=== PATIENT | female | born 1935 | race Caucasian/White ===

== ENCOUNTER 2020-01-26 06:03 | Inpatient (IN) ==
--- NOTE | 2020-01-21 16:33 | EKG Report ---
Test Performed on : 01/21/2020 4:26:20 PM Test Reason : PAT Blood Pressure : / mmHG Vent. Rate : 057 BPM Atrial Rate : 057 BPM P-R Int : 204 ms QRS Dur : 134 ms QT Int : 470 ms P-R-T Axes : 054 -44 014 degrees QTc Int : 457 ms Sinus bradycardia. Left axis deviation Right bundle branch block Minimal voltage criteria for LVH, may be normal variant Abnormal ECG When compared with ECG of 19-MAR-2013 11:41, premature supraventricular complexes. are no longer present Confirmed by Joshua Damico MD ([id number]) on 01/21/2020 7:51:17 PM
[2020-01-21 16:49] LABS: URINE SOURCE CLEAN CATCH
[2020-01-21 16:56] LABS: BASO# 0.03 X1000 (0.0-0.2); BASO% 0.4 % (0.0-0.8); EOS# 0.31 X1000 (0.0-0.7); EOS% 4.4 % (0.0-10.0); HEMATOCRIT 36.6 % (37.0-47.0); HEMOGLOBIN 11.1 g/dL (12.0-16.0); LYMPH# 0.88 X1000 (1.2-3.4); LYMPH% 12.5 % (20.5-51.1); MCH 23.7 PG (27-31); MCHC 30.3 g/dL (33-37); MCV 78.2 FL (81-99); MONO# 0.47 X1000 (0.11-0.59); MONO% 6.7 % (1.7-9.3); MPV 9.8 FL (7.4-10.4); NEUT# 5.36 X1000 (1.4-6.5); PLT 257 X1000 (130-400); RBC 4.68 XMIL (4.2-5.4); WBC 7.05 X1000 (4.8-10.8)
[2020-01-21 17:00] LABS: BILIRUBIN URINE NEGATIVE (NEGATIVE); BLOOD URINE NEGATIVE (NEGATIVE); COLOR YELLOW; GLUCOSE URINE NEGATIVE (NEGATIVE); KETONE URINE NEGATIVE (NEGATIVE); LEUKOCYTES URINE TRACE (NEGATIVE); NITRITE URINE NEGATIVE (NEGATIVE); PROTEIN URINE TRACE mg/dL (NEGATIVE); SP GRAVITY URINE 1.017; TURBIDITY URINE CLEAR (CLEAR); UROBILINOGEN URINE 2 mg/dL (NORMAL)
[2020-01-21 17:02] LABS: UR EPITHELIAL CELLS <10 /HPF (<10); URINE BACTERIA NEGATIVE /HPF; URINE RBC <10 /HPF (<10); URINE WBC <10 /HPF (<10)
[2020-01-21 17:04] LABS: HEMOGLOBIN A1C 5.6 % (4.8-6.0)
[2020-01-21 17:11] LABS: INR 1.03; PROTIME 13.6 Seconds (11.0-16.0)
[2020-01-21 17:12] LABS: AGAP 11; ALBUMIN 4.1 g/dL (3.5-5.0); BUN 17 mg/dL (8-22); CALCIUM 9.1 mg/dL (8.8-10.2); CHLORIDE 101 mmol/L (98-107); COSMO 284; CREATININE 0.8 mg/dL (0.5-0.9); ESTIMATED GFR > 60; GLUCOSE 86 mg/dL (70-104); POTASSIUM 3.4 mmol/L (3.5-5.1); PTT 29.9 Seconds (22.3-41.8); SODIUM 142 mmol/L (136-145); TCO2 30 mmol/L (25-35)
[2020-01-26] MEDS ORDERED: PEPCID ONE (06:51)
[2020-01-26] MEDS ORDERED: COLACE ONE (06:51)
[2020-01-26] MEDS ORDERED: LYRICA ONE (06:51)
[2020-01-26] MEDS ORDERED: LR 1,000 ML ONE (06:52)
[2020-01-26] MEDS ORDERED: CELEBREX ONE (06:52)
[2020-01-26] MEDS ORDERED: KEFZOL 1 GM/D5W 1 GM/50 ML IVPB ONE ×2 (06:52→09:44)
[2020-01-26] MEDS ORDERED: NEO-SYNEPHRINE ONE ×2 (07:02→10:34)
[2020-01-26] MEDS ORDERED: QUELICIN (DOSE) ONE (07:02)
[2020-01-26] MEDS ORDERED: XYLOCAINE-MPF 2% ONE (07:02)
[2020-01-26] MEDS ORDERED: SODIUM CHLORIDE 0.9% 20 ML ONE (07:02)
[2020-01-26] MEDS ORDERED: ROBINUL ONE ×2 (07:02→11:13)
[2020-01-26] MEDS ORDERED: DIPRIVAN 1% ONE (07:05)
[2020-01-26] MEDS ORDERED: FENTANYL ONE (07:05)
[2020-01-26] MEDS ORDERED: DECADRON ONE (07:06)
[2020-01-26] MEDS ORDERED: DIPRIVAN 1% 500 MG/50 ML BOTTLE ONE (07:22)
[2020-01-26] MEDS ORDERED: DURAMORPH ONE (08:38)
[2020-01-26] MEDS ORDERED: TORADOL ONE (08:38)
[2020-01-26] MEDS ORDERED: MARCAINE 0.25% PF ONE (08:38)
[2020-01-26] MEDS ORDERED: CYKLOKAPRON 1,000 MG/NS 1,000 MG/100 ML IVPB ONE ×2 (08:39→09:44)
[2020-01-26] MEDS ORDERED: EXPAREL 1.3% ONE (08:39)
[2020-01-26] MEDS ORDERED: SODIUM CHLORIDE 0.9% ONE (08:39)
[2020-01-26] MEDS ORDERED: EPHEDRINE ONE (09:43)
[2020-01-26] MEDS ORDERED: OFIRMEV 1000 MG/ISOTONIC SOLN 1,000 MG/100 ML BOTTLE ONE (09:44)
[2020-01-26 10:31] LABS: URINE SOURCE CATH
[2020-01-26 10:36] LABS: BILIRUBIN URINE NEGATIVE (NEGATIVE); BLOOD URINE NEGATIVE (NEGATIVE); COLOR YELLOW; GLUCOSE URINE NEGATIVE (NEGATIVE); KETONE URINE NEGATIVE (NEGATIVE); LEUKOCYTES URINE NEGATIVE (NEGATIVE); NITRITE URINE NEGATIVE (NEGATIVE); PH URINE 7.5; PROTEIN URINE NEGATIVE (NEGATIVE); SP GRAVITY URINE 1.019; TURBIDITY URINE CLEAR (CLEAR); UROBILINOGEN URINE NORMAL (NORMAL)
[2020-01-26 10:37] LABS: UR EPITHELIAL CELLS <10 /HPF (<10); URINE BACTERIA NEGATIVE /HPF; URINE RBC <10 /HPF (<10); URINE WBC <10 /HPF (<10)
[2020-01-26] MEDS ORDERED: ZOFRAN ONE (10:54)
[2020-01-26] MEDS ORDERED: OXY IR PO PRN ×2 (11:46)
[2020-01-26] MEDS ORDERED: VANCOMYCIN 1 GM/NS 1 GM/250 ML IVPB IV ONE (11:46)
[2020-01-26] MEDS ORDERED: MORPHINE IV PRN (11:46)
[2020-01-26] MEDS ORDERED: ZOFRAN IV PRN (11:46)
[2020-01-26] MEDS ORDERED: ZOFRAN PO PRN (11:46)
[2020-01-26 12:21] LABS: HEMATOCRIT 26.1 % (37.0-47.0); HEMOGLOBIN 7.7 g/dL (12.0-16.0)
--- NOTE | 2020-01-26 12:24 | Diag Imaging Result Doc PS360 ---
EXAM: XRAY HIP UNILATERAL LT INDICATION: Postop TECHNIQUE: 2 views COMPARISON: None. FINDINGS: There has been a recent left hip arthroplasty. The arthroplasty hardware is in the expected position. There is no evidence of periprosthetic fracture. There is postsurgical gas in the soft tissues overlying the left hip. IMPRESSION: Satisfactory postoperative hip. Electronically signed by Brodie Porter 01/26/2020 12:21 PM
[2020-01-26] MEDS ORDERED: NS 1,000 ML ONE (12:36)
[2020-01-26] MEDS ORDERED: OXY IR ONE (12:36)
[2020-01-26] MEDS: KEFZOL 2 GM/D5W 2 GM/50 ML IVPB IV SCH (17:43)
[2020-01-26] MEDS: TYLENOL PO SCH ×2 (17:44→21:50)
[2020-01-26] MEDS: ULTRAM PO SCH ×2 (17:44→21:51)
[2020-01-26] MEDS: NS 1,000 ML IV SCH ×2 (17:44→21:48)
[2020-01-26] MEDS ORDERED: PRILOSEC PO PRN (18:07)
[2020-01-26] MEDS ORDERED: KLOR-CON PO SCH (18:15)
--- NOTE | 2020-01-26 19:54 | OPERATIVE NOTE ---
PROCEDURE DATE: 01/26/2020 PREOPERATIVE DIAGNOSIS: Left hip osteoarthritis. POSTOPERATIVE DIAGNOSIS: Left hip osteoarthritis. PROCEDURE: Left total hip arthroplasty through a direct anterior approach. SURGEON: Deshawn Brian MD. TURNING SANDER OPERATOR: 1. Aleena Bailon, whose help was needed for retraction, placement of implants, reduction of the hip and to speed up the efficiency in the OR. 2. Tarik Matt RN. ANESTHESIA: Spinal anesthesia. COMPLICATIONS: None. SPECIMENS: None. DRAINS: None. BLOOD LOSS: 700 mL. Patient was found to ooze throughout the procedure. However, had no signs of active arterial bleeding that was found throughout the case. I think most of her blood loss came after making her femoral neck cut and oozing from the femoral canal. IMPLANTS: 1. Biomet G7 acetabular shell measuring 48 mm with a size C liner with one 6.5 mm x 35 mm screw. 2. A neutral G7 highly Crosslinked polyethylene liner was placed. 3. Biomet Taperloc Micro femoral stem measuring size 11 standard offset type 1 taper with a +3 neck and a 32 mm Lovelock chromium head. INDICATIONS FOR PROCEDURE: Ms. Cardozo is an 84-year-old lady who has been followed in clinic for complaints of left hip pain. She has tried and failed conservative treatment modalities and states the pain has progressed to the point where she can no longer walk and it interferes with her activities of daily living. She had previously undergone left total knee surgery Dr. Platt in the past and has done well with this. Risks, benefits, alternative therapies were discussed with the patient and family regarding surgery. Risks of surgery include, but not limited to risks of bleeding, infection, damage to nerves and vessels around the area, continued pain following surgery, dislocation, need for revision surgery. There is also risk of anesthesia including blood clot, stroke, heart attack, and even . Patient understands these risks. All questions were answered. Informed consent was obtained. PROCEDURE IN DETAIL: Ms. Cardozo was identified by wristband and greeted in preop holding area on 01/26/2020. Her left lower extremity which was the operative site was then marked with indelible ink per [facility] Sign Your Site protocol. Following this, the patient was transferred back to the operating room for surgery. Upon entering the OR, a spinal anesthetic was administered on her hospital bed. She was then transferred in supine position on the Cougar table. All bony prominences were well padded. The left lower extremity was then prepped and draped in routine sterile fashion. Formal time-out was performed confirming correct patient, procedure, operative site, operative side, administration of preoperative antibiotics. Everyone was in agreement. Patient received 2 g of Ancef prior to incision. A ten blade knife was used to make a standard 12 cm incision on the anterior lateral aspect of the thigh about 2 cm distal and 3 cm lateral to the ASIS for a direct anterior approach. Knife was used to dissect through skin. Bovie cautery was then used to dissect through subcutaneous fat down to tensor fascia. A fresh knife was then used to make a slit in the tensor fascia and curved Wallace scissors were then used to extend this both proximally and distally. At this time the anterior fascia was teased off of the tensor fascia muscle belly until we fell into the interval between sartorius and tensor fascia. A blunt Cobra was then placed over the femoral saddles superiorly. A hemostat was then used to carefully spread through the interval to localize our ascending circumflex vessels which were then carefully clipped and bovied. Once this done, vessels were then ligated and we entered our deep interval. A second blunt Cobra was placed along the inferior neck. At this time, Bovie was used to elevate pericapsular fat off the anterior capsule. Once this was done, the 90 degree sharp Hohmann was then placed up under pericapsular fat onto the anterior lip of the acetabulum to expose the anterior hip capsule. Cox elevator was then used to clean off the capsule. We proceeded with make our capsulotomy using Bovie cautery to make an inverted T capsulotomy. Each limb of the capsule was tagged with #1 Vicryl suture. We then proceeded with releasing capsule both superiorly and inferiorly down the lesser trochanter. Retractors were then repositioned within the capsule. At this time we had excellent visualization of the femoral head and neck. We then used a sagittal saw to make our femoral neck cut in routine fashion. A corkscrew was then used to remove the femoral head from the socket. At this time, the long-handled knife was then used to remove the labrum from the acetabulum. We then repositioned retractors to have the sharp curved Hohmann anterior superiorly, a blunt Cobra anterior inferiorly and a second blunt Cobra over the posterior wall. At this time, we had excellent visualization of the cup. A curette and Bovie were then used to remove the ligamentum from the cotyloid fossa. We then proceeded with reaming of our socket starting with a 43 mm reamer to medialize the medial wall. Once this was done, we sequentially reamed up to a size 47 mm reamer. Fluoroscopy was brought in confirming good size of the cup and position of the implant. We then opened a 48 mm G7 shell. At this time shell was impacted in position under fluoroscopy at about 40 degrees of abduction and 20 degrees anteversion. The patient was found to have good press fit of the cup. At this time, we then proceeded with placement of one 6.5 mm acetabular screw in the posterior superior quadrant, which had excellent purchase. The screw hole was sounded prior to placement of the screw and was found not to penetrate the distal cortex and be solid within bone throughout the full course of the tunnel. Once this was done, the acetabular cup was irrigated and a size C neutral liner was then impacted in position. At this time, vastus lateralis was elevated from the proximal femur and the hook for the Cougar table femoral elevator attachment was then placed around the femur, making sure not to include any soft tissue between the hook and the bone. Once this was done, the leg was externally rotated and the hook was used to elevate the femur slightly up into the wound. We then proceeded with our release off the greater trochanter using a Bovie to carefully split the capsular tissue on the greater trochanter proximally, being careful not to violate the abductors. Once this was done, the femur popped up into the wound. We then extended and adducted the leg. We now had excellent visualization of the canal. A rongeur was used to remove the remaining lateral neck and a cookie cutter was then used to enter the canal. We then used a canal finer followed by a rat-tail to remove any remaining lateral bone. At this time we began with sequential broaching of the femur starting with a size 4, working our way up to a size 11. The size 11 stem had excellent fit with no signs of calcar split. At this time, a standard neck with a +0 head were then trialed and the hip was reduced in routine fashion. The hip was taken through range of motion and found to be stable. She did have a little bit of shucking and laxity in the joint, however, was not unstable. Fluoroscopy was brought in and a perfect AP of the pelvis was obtained showing about 3 mm shortening of the operative side compared to the contralateral side. The stem was found to have good fill and intramedullary placement. At this time our femoral trials were removed and the canal was copiously irrigated with normal saline. Our size 11 Biomet Taperloc Microplasty stem was then opened and impacted in position. We then trialed a +3 ball, which was found to restore leg length and have good stability. A +3 neck with a 32 mm Lovelock chromium ball were then opened and impacted onto the trunnion in a routine fashion. The hip was again reduced and final fluoroscopy shots were taken showing good concentric reduction of the joint and placement of all implants. At this time our 0.35% Betadine solution was poured in the wound and allowed to sit for 3 minutes. We then injected our deep Exparel cocktail around the hip capsule and vastus lateralis, indirect head of the rectus, tensor fascia and sartorius muscles. The skin injection was then injected around the subcutaneous fat and our skin incision. At this time, we then copiously irrigated the wound with 3 L of normal saline. Then proceeded with closure of the joint. A #1 Vicryl suture was used to repair our capsulotomy. An 0 Vicryl suture was then used in a running locking fashion to close the tensor fascia. Then, 2-0 Vicryl suture was used for subcutaneous tissue closure followed by 3-0 Monocryl for skin closure. Wound was then dressed with Dermabond and Aqua Seal dressing. At this time the patient was then woken up, transferred over to her hospital stretcher and taken to recovery in stable condition. There were no acute complications during the procedure. All sponge and sharp counts were correct at conclusion of procedure.
--- NOTE | 2020-01-26 20:07 | ORTHOPAEDICS PROGRESS NOTE ---
DATE: 01/26/2020 SUBJECTIVE: No acute events today. Patient has done very well postoperatively. She has not ambulated with physical therapy yet. She has tolerated diet and reports no pain in the hip. OBJECTIVE: Afebrile. Vital signs are stable. Postop hematocrit 26. Examination of the left lower extremity shows surgical dressing to be clean, dry, intact. Thigh and calf soft and compressible. No fluctuance or hematoma. Motor is intact, EHL, tibialis anterior, gastrocsoleus complex. Sensation intact to light touch L3 to S1. Dorsalis pedis pulse palpable and equal bilaterally. IMAGING: AP and lateral views of the left hip obtained in PACU were reviewed demonstrating good position of implants and concentric reduction of the hip. ASSESSMENT: An 84-year-old female status post left total hip arthroplasty. PLAN: 1. Patient is weightbearing as tolerated, left lower extremity. Physical therapy to work with mobilization and gait training. Anterior hip precautions. 2. Aspirin for deep venous thrombosis prophylaxis. 3. Ice to left lower extremity as needed for pain. 4. Regular diet. 5. Restart all home medications. 6. Ancef every 8 hours x24 hours. 7. Disposition. Plan on discharging the patient home tomorrow as long as her blood count is stable, she meets physical therapy goals, and the pain is controlled. She did have some oozing from her bone cut during the procedure without any sign of active bleeding. However, she did lose more blood than usual for this procedure, so we will monitor hematocrit closely.
[2020-01-26] MEDS ORDERED: CELEBREX PO SCH (21:00)
[2020-01-26] MEDS: PERIDEX MT SCH (21:47)
[2020-01-26] MEDS: ARICEPT PO SCH (21:48)
[2020-01-26] MEDS: COZAAR PO SCH ×2 (21:48→21:52)
[2020-01-26] MEDS: CELEBREX PO SCH (21:48)
[2020-01-26] MEDS: DESYREL PO SCH (21:48)
[2020-01-26] MEDS: TOPROL XL PO SCH (21:48)
[2020-01-26] MEDS: MIRAPEX PO SCH (21:49)
[2020-01-26] MEDS: LIPITOR PO SCH (21:49)
[2020-01-26] MEDS: ZOLOFT PO SCH (21:49)
[2020-01-26] MEDS: LYRICA PO SCH (21:49)
[2020-01-26] MEDS: COLACE PO SCH (21:50)
[2020-01-26] MEDS ORDERED: AYR NASAL SPRAY NAS PRN (22:05)
[2020-01-27] MEDS: KEFZOL 2 GM/D5W 2 GM/50 ML IVPB IV SCH (01:45)
[2020-01-27] MEDS: ULTRAM PO SCH ×4 (03:36→20:59)
[2020-01-27] MEDS: TYLENOL PO SCH ×4 (03:36→20:59)
[2020-01-27] MEDS: NS 1,000 ML IV SCH (05:56)
[2020-01-27 07:13] LABS: AGAP 12; BUN 13 mg/dL (8-22); CALCIUM 7.9 mg/dL (8.8-10.2); CHLORIDE 107 mmol/L (98-107); COSMO 281; CREATININE 0.7 mg/dL (0.5-0.9); ESTIMATED GFR > 60; GLUCOSE 126 mg/dL (70-104); POTASSIUM 3.7 mmol/L (3.5-5.1); SODIUM 140 mmol/L (136-145); TCO2 21 mmol/L (25-35)
[2020-01-27 07:14] LABS: HEMATOCRIT 20.6 % (37.0-47.0)
[2020-01-27] MEDS: PERIDEX MT SCH ×2 (10:50→20:58)
[2020-01-27] MEDS: PEPCID PO SCH (10:50)
[2020-01-27] MEDS: ASPIRIN PO SCH (10:50)
[2020-01-27] MEDS: ABILIFY PO SCH (10:50)
[2020-01-27] MEDS: PROZAC PO SCH (10:50)
[2020-01-27] MEDS: CLARITIN PO SCH (10:50)
[2020-01-27] MEDS: LYRICA PO SCH ×2 (10:50→20:58)
[2020-01-27] MEDS: CELEBREX PO SCH ×2 (10:51→20:59)
[2020-01-27] MEDS: MIRAPEX PO SCH ×2 (10:51→21:02)
[2020-01-27] MEDS: COLACE PO SCH ×2 (10:51→20:58)
--- NOTE | 2020-01-27 15:28 | ORTHOPAEDICS PROGRESS NOTE ---
DATE: 01/27/2020 SUBJECTIVE: No acute events overnight. The patient is a little bit confused this morning. She states she is not having any pain in the hip. Her Hogue catheter was removed this morning and she is urinating on her own. Physical therapy and occupational therapy are holding off with getting her up ambulating right now as her hematocrit is 21. She is otherwise asymptomatic and denies any headaches, blurry vision, or feelings of lightheadedness. She is tolerating a diet. Hematocrit 21. OBJECTIVE: Vital Signs: Afebrile. Vital signs stable. Extremities: Examination of left lower extremity shows surgical dressing to be clean, dry, intact with no bleeding. She has some swelling in her thigh, however, it is soft and compressible with no signs of hematoma or fluctuance. Motor is intact EHL, tibialis anterior, gastrocsoleus complex. Sensation intact to light touch L3-S1. Dorsalis pedis pulse palpable and equal bilaterally. Negative Homans bilaterally. ASSESSMENT: An 84-year-old female status post left total hip arthroplasty, postoperative day 1. PLAN: 1. Physical therapy and occupational therapy to work with the patient after she has given blood. She is weightbearing as tolerated left lower extremity. Anterior hip precautions. 2. Acute blood loss anemia from surgery. Hematocrit was 21 this morning. We will transfuse 2 units of packed red blood cells today. Her vital signs are otherwise stable. 3. She has some postoperative confusion likely secondary to anesthesia. We will continue to monitor. 4. Ice left lower extremity as needed for pain. DISPOSITION: Plan to discharge patient to inpatient rehab when bed is available and she is medically stable.
--- NOTE | 2020-01-27 17:46 | Diag Imaging Result Doc PS360 ---
EXAM: CHEST-1 VIEW INDICATION: REHAB TECHNIQUE: One view COMPARISON: 04/10/2013 FINDINGS: The lungs are grossly clear. There is no discrete pleural fluid collection or pneumothorax. The cardiomediastinal silhouette and central vasculature are grossly unremarkable. IMPRESSION: No evidence of acute pathology by plain radiograph. Electronically signed by Brodie Porter 01/27/2020 5:43 PM
[2020-01-27] MEDS: LIPITOR PO SCH (20:58)
[2020-01-27] MEDS: ZOLOFT PO SCH (20:58)
[2020-01-27] MEDS: TOPROL XL PO SCH (20:58)
[2020-01-27] MEDS: COZAAR PO SCH (20:59)
[2020-01-27] MEDS: DESYREL PO SCH (21:00)
[2020-01-27] MEDS: ARICEPT PO SCH (21:00)
[2020-01-28] MEDS: ULTRAM PO SCH ×4 (03:00→21:29)
[2020-01-28 07:16] LABS: BASO# 0.01 X1000 (0.0-0.2); BASO% 0.2 % (0.0-0.8); EOS# 0.26 X1000 (0.0-0.7); EOS% 5.3 % (0.0-10.0); HEMATOCRIT 29.5 % (37.0-47.0); HEMOGLOBIN 9.3 g/dL (12.0-16.0); LYMPH# 0.45 X1000 (1.2-3.4); LYMPH% 9.2 % (20.5-51.1); MCH 25.3 PG (27-31); MCHC 31.5 g/dL (33-37); MCV 80.2 FL (81-99); MONO# 0.46 X1000 (0.11-0.59); MONO% 9.4 % (1.7-9.3); MPV 10.3 FL (7.4-10.4); NEUT# 3.72 X1000 (1.4-6.5); NEUT% 75.9 % (42.2-75.2); PLT 213 X1000 (130-400); RBC 3.68 XMIL (4.2-5.4); RDW 18.7 % (11.5-14.5)
[2020-01-28 07:39] LABS: AGAP 9; BUN 14 mg/dL (8-22); CALCIUM 8.8 mg/dL (8.8-10.2); CHLORIDE 110 mmol/L (98-107); COSMO 287; CREATININE 0.7 mg/dL (0.5-0.9); ESTIMATED GFR > 60; GLUCOSE 100 mg/dL (70-104); POTASSIUM 3.8 mmol/L (3.5-5.1); SODIUM 144 mmol/L (136-145); TCO2 25 mmol/L (25-35)
[2020-01-28] MEDS: NS 1,000 ML IV SCH ×4 (08:28→21:41)
[2020-01-28] MEDS: TYLENOL PO SCH ×4 (08:28→21:29)
[2020-01-28] MEDS: MIRAPEX PO SCH ×2 (09:43→21:28)
[2020-01-28] MEDS: ABILIFY PO SCH (09:43)
[2020-01-28] MEDS: ASPIRIN PO SCH (09:44)
[2020-01-28] MEDS: COLACE PO SCH ×2 (09:44→21:30)
[2020-01-28] MEDS: PERIDEX MT SCH ×2 (09:44→21:28)
[2020-01-28] MEDS: CLARITIN PO SCH (09:45)
[2020-01-28] MEDS: CELEBREX PO SCH ×2 (09:45→21:28)
[2020-01-28] MEDS: LYRICA PO SCH ×2 (09:46→21:30)
[2020-01-28] MEDS: PROZAC PO SCH (09:46)
[2020-01-28] MEDS: PEPCID PO SCH (09:46)
--- NOTE | 2020-01-28 12:49 | ORTHOPAEDICS PROGRESS NOTE ---
DATE: 01/28/2020 SUBJECTIVE: The patient had some altered mental status and confusion overnight and this morning. Physical Therapy got her up and she took a couple of steps around the room. However, reported seeing cats and babies in the room, and thus stopped therapy. She is tolerating a diet and urinating voluntarily. She reports minimal pain in the hip. She received 2 units of packed red blood cells yesterday. LABORATORY DATA: Hematocrit 30. OBJECTIVE: Vital Signs: Afebrile. Vital signs stable. Extremities: Examination of the left lower extremity shows surgical dressing to be clean, dry, intact. Thigh is soft and compressible. Motor is intact, EHL, tibialis anterior, gastrocsoleus complex. Sensation intact to light touch, L3-S1. Dorsalis pedis pulse is palpable and equal bilaterally. ASSESSMENT: An 84-year-old female status post left total hip arthroplasty, postoperative day 2. PLAN: 1. The patient is weightbearing as tolerated on the left lower extremity. Physical Therapy to mobilize. 2. Acute blood loss anemia. The patient has responded appropriately to 2 units of packed red cells she received yesterday. She is afebrile, and her vital signs are stable. She has no signs of active bleeding. 3. Postoperative altered mental status, likely secondary to anesthesia. Try to hold narcotics if possible. 4. Ice to left lower extremity as needed for pain. 5. Anterior hip precautions. 6. Aspirin for DVT prophylaxis. 7. Disposition. The patient is planning on going to swing bed at [facility] tomorrow if she is stable and doing better medically.
[2020-01-28] MEDS: MILK OF MAGNESIA PO PRN (13:00)
[2020-01-28] MEDS: LIPITOR PO SCH (21:29)
[2020-01-28] MEDS: DESYREL PO SCH (21:29)
[2020-01-28] MEDS: TOPROL XL PO SCH (21:29)
[2020-01-28] MEDS: ARICEPT PO SCH (21:29)
[2020-01-28] MEDS: ZOLOFT PO SCH (21:30)
[2020-01-28] MEDS: COZAAR PO SCH (21:30)
[2020-01-29] MEDS: ULTRAM PO SCH ×4 (04:00→20:09)
[2020-01-29] MEDS: TYLENOL PO SCH ×4 (04:01→20:09)
[2020-01-29 07:11] LABS: HEMATOCRIT 28.5 % (37.0-47.0); HEMOGLOBIN 8.9 g/dL (12.0-16.0)
[2020-01-29] MEDS: MILK OF MAGNESIA PO PRN (07:40)
[2020-01-29] MEDS: MIRAPEX PO SCH ×2 (10:57→20:09)
[2020-01-29] MEDS: PERIDEX MT SCH ×2 (10:57→20:08)
[2020-01-29] MEDS: NS 1,000 ML IV SCH ×2 (10:57→23:38)
[2020-01-29] MEDS: CELEBREX PO SCH ×2 (10:58→20:08)
[2020-01-29] MEDS: LYRICA PO SCH ×2 (10:58→20:08)
[2020-01-29] MEDS: ASPIRIN PO SCH (10:58)
[2020-01-29] MEDS: CLARITIN PO SCH (10:59)
[2020-01-29] MEDS: COLACE PO SCH ×2 (10:59→20:09)
[2020-01-29] MEDS: ABILIFY PO SCH (11:01)
[2020-01-29] MEDS: PROZAC PO SCH (11:02)
[2020-01-29] MEDS: PEPCID PO SCH (11:02)
--- NOTE | 2020-01-29 13:00 | ORTHOPAEDICS PROGRESS NOTE ---
DATE: 01/29/2020 SUBJECTIVE: No acute events overnight. Patient had significant altered mental status and confusion yesterday. However, this is seems to have improved overnight and this morning. Today, she is oriented to place, person, and date. She reports minimal pain in the hip. She is tolerating a diet. Physical therapy has not yet ambulated with her today. OBJECTIVE: Afebrile. Vital signs are stable. Hematocrit 29 and stable.Extremities: Examination of left lower extremity shows Aquacel dressing to be clean, dry, intact. Thigh and calf are soft and compressible. Neurovascularly intact. ASSESSMENT: An 84-year-old female status post left total hip arthroplasty. Postoperative day 3. PLAN: 1. Patient is weightbearing as tolerated left lower extremity. Physical therapy to mobilize with assistive device. Anterior hip precautions. 2. Aspirin for DVT prophylaxis. 3. Ice left lower extremity as needed for pain. 4. Acute blood loss anemia: Stable status post transfusion. No signs of active bleeding. No sign of hematoma around the surgical incision. 5. Altered mental status, likely secondary to anesthesia and . She is much improved today. We will continue to monitor. DISPOSITION: Plan to discharge the patient to shelter facility when bed is available. Prescriptions on the chart. She is okay to go today from medical standpoint if bed is available.
[2020-01-29] MEDS: ZOLOFT PO SCH (20:08)
[2020-01-29] MEDS: LIPITOR PO SCH (20:09)
[2020-01-29] MEDS: ARICEPT PO SCH (20:09)
[2020-01-29] MEDS: TOPROL XL PO SCH (20:09)
[2020-01-29] MEDS: DESYREL PO SCH (20:09)
[2020-01-29] MEDS: COZAAR PO SCH (20:10)
[2020-01-30] MEDS: TOPROL XL PO SCH ×2 (00:03→20:07)
[2020-01-30] MEDS: COZAAR PO SCH ×2 (00:04→20:06)
[2020-01-30] MEDS: NS 1,000 ML IV SCH ×2 (04:12→16:15)
[2020-01-30] MEDS: ULTRAM PO SCH ×4 (04:12→20:04)
[2020-01-30] MEDS: TYLENOL PO SCH ×4 (04:13→20:07)
[2020-01-30] MEDS: PERIDEX MT SCH ×2 (10:00→20:07)
[2020-01-30] MEDS: LYRICA PO SCH ×2 (10:00→20:07)
[2020-01-30] MEDS: CELEBREX PO SCH ×2 (10:00→20:05)
[2020-01-30] MEDS: PROZAC PO SCH (10:00)
[2020-01-30] MEDS: ABILIFY PO SCH (10:00)
[2020-01-30] MEDS: COLACE PO SCH ×2 (10:01→20:05)
[2020-01-30] MEDS: MIRAPEX PO SCH ×2 (10:01→20:07)
[2020-01-30] MEDS: CLARITIN PO SCH (10:01)
[2020-01-30] MEDS: ASPIRIN PO SCH (10:01)
[2020-01-30] MEDS: PEPCID PO SCH (10:01)
[2020-01-30] MEDS: ARICEPT PO SCH (20:05)
[2020-01-30] MEDS: DESYREL PO SCH (20:06)
[2020-01-30] MEDS: ZOLOFT PO SCH (20:06)
[2020-01-30] MEDS: LIPITOR PO SCH (20:06)
[2020-01-31] MEDS: TYLENOL PO SCH ×4 (03:33→21:17)
[2020-01-31] MEDS: NS 1,000 ML IV SCH ×2 (03:33→21:29)
[2020-01-31] MEDS: ULTRAM PO SCH ×4 (03:33→21:17)
[2020-01-31] MEDS: ASPIRIN PO SCH (11:35)
[2020-01-31] MEDS: COLACE PO SCH ×2 (11:35→21:19)
[2020-01-31] MEDS: PROZAC PO SCH (11:35)
[2020-01-31] MEDS: MIRAPEX PO SCH ×2 (11:36→21:19)
[2020-01-31] MEDS: PEPCID PO SCH (11:37)
[2020-01-31] MEDS: CELEBREX PO SCH ×2 (11:37→21:17)
[2020-01-31] MEDS: CLARITIN PO SCH (11:37)
[2020-01-31] MEDS: ABILIFY PO SCH (11:37)
[2020-01-31] MEDS: PERIDEX MT SCH ×2 (11:38→21:19)
[2020-01-31] MEDS: LYRICA PO SCH ×2 (11:47→21:17)
--- NOTE | 2020-01-31 12:25 | ORTHOPAEDICS PROGRESS NOTE ---
DATE: 01/31/2020 SUBJECTIVE: No acute events overnight. Patient is doing well. Her pain is well controlled. She ambulated 100 feet with Physical Therapy yesterday. She has been ready for discharge since , however, is waiting on an insurance pre-cert for [facility] swing bed. Pre- cert did not get completed by yesterday afternoon, so she will be here through the weekend and hopefully can be discharged on Sunday. She is tolerating a diet. She is urinating voluntarily. Her mental status is much improved. OBJECTIVE: Afebrile. Vital signs are stable.Extremities: Examination of left lower extremity shows surgical dressing to be clean, dry, intact. No erythema, fluctuance or sign of infection. Thigh and calf soft and compressible. Motor is intact EHL, tibialis anterior, gastrocsoleus complex. Sensation intact to light touch L3-S1. Dorsalis pedis pulse palpable and equal bilaterally. ASSESSMENT: An 84-year-old female status post left total hip arthroplasty. PLAN: 1. Weightbearing as tolerated on left lower extremity. Physical therapy to mobilize. Anterior hip precautions. 2. Ice left lower extremity as needed for pain. 3. Aspirin for DVT prophylaxis. 4. The patient is to be up to the chair and out of bed 3 times a day with meals. DISPOSITION: Plan discharge to [facility] swing bed on Sunday once pre-cert is complete.
[2020-01-31] MEDS: ZOLOFT PO SCH (21:17)
[2020-01-31] MEDS: ARICEPT PO SCH (21:18)
[2020-01-31] MEDS: COZAAR PO SCH (21:18)
[2020-01-31] MEDS: LIPITOR PO SCH (21:18)
[2020-01-31] MEDS: DESYREL PO SCH (21:18)
[2020-01-31] MEDS: TOPROL XL PO SCH (21:19)
[2020-02-01] MEDS: NS 1,000 ML IV SCH ×2 (03:32→18:48)
[2020-02-01] MEDS: ULTRAM PO SCH ×4 (03:33→22:47)
[2020-02-01] MEDS: TYLENOL PO SCH ×4 (03:33→22:47)
[2020-02-01] MEDS: ABILIFY PO SCH (12:18)
[2020-02-01] MEDS: CELEBREX PO SCH ×2 (12:19→22:48)
[2020-02-01] MEDS: ASPIRIN PO SCH (12:19)
[2020-02-01] MEDS: PROZAC PO SCH (12:19)
[2020-02-01] MEDS: PEPCID PO SCH (12:19)
[2020-02-01] MEDS: CLARITIN PO SCH (12:20)
[2020-02-01] MEDS: COLACE PO SCH ×2 (12:20→22:47)
[2020-02-01] MEDS: MIRAPEX PO SCH ×2 (12:21→22:48)
[2020-02-01] MEDS: LYRICA PO SCH ×2 (12:26→22:47)
[2020-02-01] MEDS: PERIDEX MT SCH ×2 (12:28→22:47)
--- NOTE | 2020-02-01 18:35 | ORTHOPAEDICS PROGRESS NOTE ---
DATE: 02/01/2020 SUBJECTIVE: No acute events overnight. Patient is doing well. She ambulated around the room today. She denies any pain in the hip. She is tolerating a diet and urinating voluntarily. She is waiting on insurance pre-cert for rehab at [facility]. OBJECTIVE: Vital signs: Afebrile. Vital signs are stable. Extremities: Examination of the left lower extremity shows surgical dressing to be clean, dry, intact. No swelling, erythema, or ecchymosis around the incision site. Thigh and calf soft and compressible. Neurovascularly intact. ASSESSMENT: An 84-year-old female status post left total hip arthroplasty. Postoperative day 6. PLAN: 1. The patient is weightbearing as tolerated left lower extremity. Physical therapy to mobilize and work on gait training. Anterior hip precautions. 2. Aspirin for deep vein thrombosis prophylaxis. 3. Ice left lower extremity as needed for pain. 4. Disposition. The patient be discharged to [facility] soon as a bed is available. Hopefully tomorrow.
[2020-02-01] MEDS: DESYREL PO SCH (22:46)
[2020-02-01] MEDS: TOPROL XL PO SCH (22:47)
[2020-02-01] MEDS: COZAAR PO SCH (22:48)
[2020-02-01] MEDS: LIPITOR PO SCH (22:48)
[2020-02-01] MEDS: ARICEPT PO SCH (22:48)
[2020-02-01] MEDS: ZOLOFT PO SCH (22:48)
[2020-02-02] MEDS: ULTRAM PO SCH ×4 (04:06→20:52)
[2020-02-02] MEDS: TYLENOL PO SCH ×4 (04:06→20:53)
[2020-02-02] MEDS: NS 1,000 ML IV SCH (07:40)
[2020-02-02] MEDS: PERIDEX MT SCH ×2 (09:55→20:47)
[2020-02-02] MEDS: LYRICA PO SCH ×2 (09:55→20:46)
[2020-02-02] MEDS: ABILIFY PO SCH (09:57)
[2020-02-02] MEDS: CELEBREX PO SCH ×2 (09:57→20:46)
[2020-02-02] MEDS: PROZAC PO SCH (09:58)
[2020-02-02] MEDS: MIRAPEX PO SCH ×2 (09:58→20:46)
[2020-02-02] MEDS: PEPCID PO SCH (09:58)
[2020-02-02] MEDS: CLARITIN PO SCH (09:58)
[2020-02-02] MEDS: COLACE PO SCH ×2 (09:59→20:46)
[2020-02-02] MEDS: ASPIRIN PO SCH (10:00)
[2020-02-02] MEDS: MILK OF MAGNESIA PO PRN (13:26)
--- NOTE | 2020-02-02 19:29 | ORTHOPAEDICS PROGRESS NOTE ---
DATE: 02/02/2020 SUBJECTIVE: No acute events overnight. Patient is doing well. She is still here in-house just waiting on insurance approval for a rehab bed at [facility]. She ambulated 120 feet with physical therapy today. She is urinating voluntarily. Her last bowel movement was 2 days ago. She is tolerating a diet. OBJECTIVE: Vital Signs: Afebrile. Vital signs are stable. Extremities: Examination of left lower extremity shows surgical dressing to be clean, dry, intact. Thigh and calf are soft and compressible. Neurovascularly intact. ASSESSMENT: An 84-year-old female status post left total hip arthroplasty. Postoperative day 7. PLAN: 1. Physical therapy. Continue to ambulate and mobilize. Anterior hip precautions. 2. Ice left lower extremity as needed for pain. 3. The patient is to be out of bed to chair 3 times a day with meals. 4. Aspirin, DVT prophylaxis. DISPOSITION: Plan is to discharge to [facility] once insurance pre-approval is complete. Patient has been ready for discharge for the last 4 days, and is solely waiting on the insurance approval process.
[2020-02-02] MEDS: ARICEPT PO SCH (20:46)
[2020-02-02] MEDS: COZAAR PO SCH (20:46)
[2020-02-02] MEDS: TOPROL XL PO SCH (20:47)
[2020-02-02] MEDS: ZOLOFT PO SCH (20:47)
[2020-02-02] MEDS: DESYREL PO SCH (20:47)
[2020-02-02] MEDS: LIPITOR PO SCH (20:48)
[2020-02-03] MEDS: ULTRAM PO SCH ×2 (03:46→12:02)
[2020-02-03] MEDS: TYLENOL PO SCH ×3 (03:46→12:02)
--- NOTE | 2020-02-03 08:40 | ORTHOPAEDICS PROGRESS NOTE ---
DATE: 02/03/2020 SUBJECTIVE: No acute events overnight. Patient is doing well. She has no pain in the leg. She had a bowel movement overnight. She is awaiting insurance approval for rehab placement. OBJECTIVE: Vital signs: Afebrile. Vital signs stable. Extremities: Examination left lower extremity shows surgical dressing to be clean, dry, intact. Thigh and calf soft and compressible. Neurovascularly intact. ASSESSMENT: An 84-year-old female status post left total hip arthroplasty. Postoperative day 8. PLAN: 1. Physical therapy. Continue to mobilize and work on gait training. Anterior hip precautions. 2. Aspirin for deep venous thrombosis prophylaxis. 3. Ice left lower extremity as needed for pain. 4. Disposition. The patient is planning on being discharged to [facility] swing bed once insurance approval is complete. Hopefully, this will be today. She will follow up with me in clinic in 10 to 14 days.
[2020-02-03] MEDS: NS 1,000 ML IV SCH (11:31)
[2020-02-03] MEDS: MIRAPEX PO SCH (11:32)
[2020-02-03] MEDS: ASPIRIN PO SCH (11:32)
[2020-02-03] MEDS: ABILIFY PO SCH (11:33)
[2020-02-03] MEDS: CELEBREX PO SCH (11:33)
[2020-02-03] MEDS: PROZAC PO SCH (11:33)
[2020-02-03] MEDS: COLACE PO SCH (11:33)
[2020-02-03] MEDS: LYRICA PO SCH (11:33)
[2020-02-03] MEDS: CLARITIN PO SCH (11:33)
[2020-02-03] MEDS: PERIDEX MT SCH (11:34)
[2020-02-03] MEDS: PEPCID PO SCH (11:34)
[2020-02-03 12:14] VITALS: BP 173/63
--- NOTE | 2020-02-03 14:34 | DISCHARGE SUMMARY ---
ADMISSION DATE: 01/26/2020 DISCHARGE DATE: 02/03/2020 ADMISSION DIAGNOSIS: Left hip osteoarthritis. DISCHARGE DIAGNOSES: 1. Left hip osteoarthritis. 2. Acute blood loss anemia secondary to surgery, requiring transfusion. PROCEDURE PERFORMED: Left total hip arthroplasty done on 01/26/2020. CONSULTATIONS: None. COMPLICATIONS: None. BRIEF HOSPITAL COURSE: Ms. Cardozo is an 84-year-old lady who has been followed for complaints of left hip pain. She tried and failed conservative treatment modalities for this, and wishes to proceed with surgical intervention. The risks, benefits, and alternative therapies were discussed with the patient regarding surgery. All questions were answered. Informed consent was obtained. The patient presented to [facility] on 01/26/2020 to undergo the above procedure. There were no acute complications during surgery. The patient did have some increased oozing and blood loss compared to normal. However, there was no active vascular bleed appreciated during surgery. Rather, it was all coming from the bone from our femoral neck cut. Following surgery, the patient was transferred to recovery and then up to the floor. She tolerated surgery well. On postoperative day 1, the patient was doing well. She did have some postop confusion, and her hematocrit had dropped down to 21. Given these findings, decision was made to transfuse 2 units of packed red blood cells, which she received on postop day 1. On postoperative day 2, her hematocrit responded appropriately up to 30. She ambulated a few steps with Physical Therapy. However, had some significant dementia and mental status changes likely secondary to anesthesia and sundowning. On postoperative day 3, her dementia began to resolve. She ambulated over 70 feet on postop day 3. Her hematocrit remained stable after this. Over the next several days, the patient was ready to go to a rehab facility. However, we were waiting on bed availability and then insurance approval for rehab. She had no other acute medical complications during the subsequent days. On postop day 8, the patient was tolerating a diet, her pain was well controlled on p.o. pain medication, and she had been working well with Physical Therapy. Rehab bed and approval were finally complete. The patient was thus discharged to [facility] swing bed on 02/03/2020. DISPOSITION: Discharged to inpatient rehab. CONDITION: Stable. ACTIVITY: Weightbearing as tolerated, left lower extremity. Anterior hip precautions. DISCHARGE MEDICATIONS: Please see medication reconciliation for full list of medications. The patient was discharged on aspirin 325 mg daily for DVT prophylaxis. DISCHARGE INSTRUCTIONS: 1. The patient is to remain weightbearing as tolerated to the left lower extremity. Work with Physical Therapy as instructed. Anterior hip precautions. 2. Aspirin for DVT prophylaxis for 6 weeks. 3. Surgical dressing can stay clean, dry, and intact x1 week. 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 4. The patient is to return to clinic in 10 to 14 days for x-rays and wound check. 5. She should return to the ER or call MD office with any acute-onset chest pain, shortness of breath, fever greater than 101.5, or drainage from surgical incision.
== END 2020-02-03 13:43 | disposition swing bed (61) | DRG 470 ==
LOC: SURHOLD 06:03 → 4N 09:37
PROVIDERS: ADMIT Orthopaedic Surgery Sports Medicine; ATTEND Orthopaedic Surgery Sports Medicine